=== PATIENT | female | born 1950 | race Caucasian/White ===

== ENCOUNTER 2019-12-19 09:32 | Outpatient (CLI) | payer OTHER ==
[~2019-12-19 09:32] MED LIST: INTEGRA F CAPS1 EACH PO; INTESTINEX1 CA1 PO; PROTONIX40 MG PO; TRAM1TAB98 PO
== END 2019-12-19 09:48 | disposition home or self-care (01) ==
LOC: SONOGRAMA 09:32 → MAMO-SONO 09:45 → SONOGRAMA 09:48
DX: N84.0 Polyp of corpus uteri (principal); N60.11 Diffuse cystic mastopathy of right breast; N60.12 Diffuse cystic mastopathy of left breast; R92.0 Mammographic microcalcification found on diagnostic imaging of breast; E66.3 Overweight; C18.8 Malignant neoplasm of overlapping sites of colon; Z80.0 Family history of malignant neoplasm of digestive organs; D25.1 Intramural leiomyoma of uterus

== ENCOUNTER 2025-02-08 12:30 | Inpatient (IN) | payer OTHER ==
[~2025-02-08] VITALS: Ht 149.9 cm; Wt 56.7 kg
[2025-02-08] MEDS ORDERED: SYNTHROID50 MCG PO (13:27)
[2025-02-08] MEDS ORDERED: METAMUCIL0.4 GM PO (13:28)
[2025-02-08] MEDS ORDERED: TENORMIN25 MG PO (13:28)
[2025-02-15] MEDS ORDERED: BUPIVACAINE HCL/MPF 0.5% 30ML VIAL ONE (14:38)
[2025-02-15] MEDS ORDERED: LIDOCAINE HCL 1%/EPINEPHRINE 20ML VIAL IJ ONE (14:39)
[2025-02-15] MEDS ORDERED: CEFTRIAXONE SODIUM 2,000 MG VIAL ONE (14:43)
[2025-02-15] MEDS ORDERED: METRONIDAZOLE/SODIUM CHLORIDE 500 MG/100 ML PIGGYBACK IV ONE (14:43)
[2025-02-15] MEDS ORDERED: INTEGRA F CAPS1 EAC1 (15:23)
[2025-02-15] MEDS ORDERED: ONDANSETRON HCL 2 MG/ML VIAL IV PRN (15:45)
[2025-02-15] MEDS ORDERED: DEXTROSE 50 % IN WATER 0.5 G/ML DISP.SYRIN IV PRN (15:45)
[2025-02-15] MEDS ORDERED: OxyCODONE HCL 5 MG TABLET (ROXICODONE) PO PRN (15:45)
[2025-02-15] MEDS ORDERED: MORPHINE SULFATE 4 MG/ML CARTRIDGE IV PRN (15:45)
[2025-02-15] MEDS ORDERED: 0.9 % SODIUM CHLORIDE 1,000 ML IV SCH (15:45)
[2025-02-15] MEDS ORDERED: HYOSCYAMINE SULFATE 0.125 MG TAB.SUBL SL SCH (17:00)
[2025-02-15] MEDS ORDERED: GABAPENTIN 300 MG CAPSULE PO SCH (17:00)
[2025-02-15] MEDS ORDERED: POLYETHYLENE GLYCOL 3350 17 GM BLIST.PACK PO SCH (17:00)
[2025-02-15] MEDS ORDERED: MORPHINE SULFATE 4 MG/ML VIAL IV ONE ×2 (18:15→19:15)
[2025-02-15] MEDS ORDERED: ENALAPRILAT DIHYDRATE 1.25 MG/ML VIAL IV PRN (18:45)
[2025-02-15 19:28] LABS: HEMATOCRIT 32.6 % (36.0-45.00); HEMOGLOBIN 10.8 g/dL (12.0-15.00); MEAN CORPUSCULAR HEMOGLOBIN 29.8 pg (27.00-32.0); MEAN CORPUSCULAR HGB CONC 33.1 g/dl (32.0-36.0); PLATELET COUNT 267 K/uL (150-450); RED BLOOD COUNT 3.63 M/uL (4.00-6.00); RED CELL DISTRIBUTION WIDTH 18.5 % (11.5-14.5)
[2025-02-15 19:41] LABS: ALBUMIN 2.6 gm/dL (3.4-5.0); CALCIUM 8.1 mg/dL (8.5-10.1); CREATININE SERUM 0.42 mg/dL (0.55-1.02); GFR 147.49; MAGNESIUM 1.5 mg/dL (1.8-2.4); PHOSPHOROUS 2.1 mg/dL (2.5-4.9); POTASSIUM 3.53 mEq/L (3.5-5.1)
[2025-02-15 19:50] VITALS: BP 131/65; O2SAT 96
[2025-02-15] MEDS ORDERED: ACETAMINOPHEN 500 MG GEL..CAP PO SCH (20:00)
[2025-02-15] MEDS ORDERED: FAMOTIDINE/PF 20 MG/2 ML VIAL IV PUSH SCH (21:00)
[2025-02-15] MEDS ORDERED: ATENOLOL 25 MG TABLET PO SCH (21:00)
[2025-02-15] MEDS ORDERED: CELECOXIB 200 MG CAPSULE PO SCH (21:00)
[2025-02-16] VITALS: BP 137/84; O2SAT 95
[2025-02-16] MEDS ORDERED: PATIENTS OWN MEDICATION (MEDICAMENTO EN PISO) PO SCH (06:00)
[2025-02-16 07:29] LABS: HEMATOCRIT 34.2 % (36.0-45.00); HEMOGLOBIN 11.4 g/dL (12.0-15.00); MEAN CORPUSCULAR HEMOGLOBIN 29.5 pg (27.00-32.0); MEAN CORPUSCULAR HGB CONC 33.2 g/dl (32.0-36.0); PLATELET COUNT 263 K/uL (150-450); RED BLOOD COUNT 3.85 M/uL (4.00-6.00)
[2025-02-16 07:49] LABS: ALBUMIN 2.6 gm/dL (3.4-5.0); CALCIUM 8.2 mg/dL (8.5-10.1); CREATININE SERUM 0.36 mg/dL (0.55-1.02); GFR 176.2; MAGNESIUM 1.6 mg/dL (1.8-2.4); PHOSPHOROUS 2.8 mg/dL (2.5-4.9); POTASSIUM 3.25 mEq/L (3.5-5.1)
[2025-02-16 08:00] VITALS: BP 107/85; O2SAT 96
[2025-02-16] MEDS ORDERED: MAGNESIUM SULFATE IN WATER 50 ML IV NR (10:10)
[2025-02-16] MEDS ORDERED: POTASSIUM CHLORIDE 20MEQ/100ML H2O PB IV NR (10:30)
[2025-02-16] MEDS ORDERED: ENOXAPARIN SODIUM 40 MG/0.4 ML SYRINGE SUBCUTANEO SCH (17:00)
[2025-02-16 17:18] VITALS: BP 111/62; O2SAT 99
[2025-02-17 00:38] VITALS: BP 114/74; O2SAT 98
[2025-02-17 08:00] VITALS: BP 134/64; O2SAT 98
[2025-02-17] MEDS ORDERED: ENOXAPARIN SODIUM 40 MG/0.4 ML SYRINGE SUBCUTANEO SCH (09:00)
[2025-02-17 10:35] LABS: HEMATOCRIT 35.2 % (36.0-45.00); HEMOGLOBIN 11.8 g/dL (12.0-15.00); MEAN CORPUSCULAR HEMOGLOBIN 29.7 pg (27.00-32.0); MEAN CORPUSCULAR HGB CONC 33.4 g/dl (32.0-36.0); PLATELET COUNT 248 K/uL (150-450); RED BLOOD COUNT 3.96 M/uL (4.00-6.00)
[2025-02-17 10:53] LABS: CALCIUM 8.1 mg/dL (8.5-10.1); CREATININE SERUM 0.56 mg/dL (0.55-1.02); GFR 105.82; MAGNESIUM 1.9 mg/dL (1.8-2.4); POTASSIUM 3.85 mEq/L (3.5-5.1)
[2025-02-17 11:03] LABS: PHOSPHOROUS 1.7 mg/dL (2.5-4.9)
[2025-02-17] MEDS ORDERED: POTASSIUM PHOS,M-BASIC-D-BASIC 15 MM in 0.9 % SODIUM CHLORIDE 250 ML IV ONE (14:00)
[2025-02-17 16:07] VITALS: BP 119/76; O2SAT 97
[2025-02-18 00:58] VITALS: BP 123/68; O2SAT 100
[2025-02-18 08:42] VITALS: BP 120/79; O2SAT 96
[2025-02-18] MEDS ORDERED: DEXTROSE 5 %-0.45 % SOD CHLORD 1,000 ML IV SCH (12:30)
[2025-02-18] MEDS ORDERED: PANTOPRAZOLE SODIUM 40 MG/VIAL VIAL IV STA (13:04)
[2025-02-18 16:23] VITALS: BP 115/76; O2SAT 98
[2025-02-18 16:25] LABS: URINE APPEARANCE Turbid; URINE BILIRRUBIN Small (NEGATIVE); URINE BLOOD Large; URINE COLOR Red; URINE GLUCOSE Negative (NEGATIVE); URINE KETONE Negative (NEGATIVE); URINE LEUKOCYTE Moderate; URINE NITRATE Positive; URINE UROBILINOGEN 0.2 E.U./dl
[2025-02-18 16:29] LABS: URINE BACTERIA 638.9 uL (0.0-1933); URINE EPITHELIAL CELLS 13.2 uL (0.0-38.8); URINE WBC 208.2 uL (0.0-23.2)
[2025-02-18 16:41] LABS: URINE PROTEIN 100 (NEGATIVE); URINE RBC > 10558.9 uL (0.0-20.8)
[2025-02-19] VITALS: BP 118/75; O2SAT 96
[2025-02-19 08:00] VITALS: BP 122/80; O2SAT 98
[2025-02-19] MEDS ORDERED: CEFTRIAXONE SODIUM 1,000 MG VIAL IV SCH (09:00)
[2025-02-19 09:39] LABS: HEMATOCRIT 36.2 % (36.0-45.00); HEMOGLOBIN 12.2 g/dL (12.0-15.00); MEAN CELL VOLUME 88.9 fL (80.00-100.00); MEAN CORPUSCULAR HGB CONC 33.7 g/dl (32.0-36.0); PLATELET COUNT 318 K/uL (150-450); RED BLOOD COUNT 4.07 M/uL (4.00-6.00); RED CELL DISTRIBUTION WIDTH 17.4 % (11.5-14.5)
[2025-02-19 11:02] LABS: CALCIUM 8.9 mg/dL (8.5-10.1); CREATININE SERUM 0.46 mg/dL (0.55-1.02); GFR 132.79; MAGNESIUM 1.7 mg/dL (1.8-2.4); PHOSPHOROUS 3.5 mg/dL (2.5-4.9); POTASSIUM 4.44 mEq/L (3.5-5.1)
[2025-02-19] MEDS ORDERED: PANTOPRAZOLE SODIUM 40 MG/VIAL VIAL IV STA (12:02)
[2025-02-19] MEDS ORDERED: MAGNESIUM SULFATE IN WATER 50 ML IV NR (13:30)
[2025-02-19 16:56] VITALS: BP 144/85; O2SAT 100
[2025-02-19] MEDS ORDERED: FAMOTIDINE/PF 20 MG/2 ML VIAL IV PUSH SCH (21:00)
[2025-02-20] VITALS: BP 134/82; O2SAT 97
[2025-02-20] MEDS ORDERED: PANTOPRAZOLE SODIUM 40 MG/VIAL VIAL IV SCH (06:00)
[2025-02-20 07:45] LABS: HEMATOCRIT 34.3 % (36.0-45.00); HEMOGLOBIN 11.3 g/dL (12.0-15.00); MEAN CELL VOLUME 88.8 fL (80.00-100.00); MEAN CORPUSCULAR HEMOGLOBIN 29.2 pg (27.00-32.0); MEAN CORPUSCULAR HGB CONC 32.9 g/dl (32.0-36.0); PLATELET COUNT 317 K/uL (150-450); RED BLOOD COUNT 3.87 M/uL (4.00-6.00); RED CELL DISTRIBUTION WIDTH 17.6 % (11.5-14.5)
[2025-02-20 08:07] VITALS: BP 120/76; O2SAT 94
[2025-02-20 08:28] LABS: ALBUMIN 2.2 gm/dL (3.4-5.0); CALCIUM 8.5 mg/dL (8.5-10.1); CREATININE SERUM 0.37 mg/dL (0.55-1.02); GFR 170.72; MAGNESIUM 1.9 mg/dL (1.8-2.4); PHOSPHOROUS 3.3 mg/dL (2.5-4.9); POTASSIUM 3.88 mEq/L (3.5-5.1)
[2025-02-20] MEDS ORDERED: DIPHENHYDRAMINE HCL 50 MG/ML VIAL 1ML IV NR (08:30)
[2025-02-20] MEDS ORDERED: DIATRIZOATE MEGLUMINE, SODIUM 30 ML BOTTLE PO NR (08:30)
[2025-02-20] MEDS ORDERED: FAMOTIDINE/PF 20 MG/2 ML VIAL IV PUSH SCH (09:00)
[2025-02-20 17:14] VITALS: BP 143/78; O2SAT 96
[2025-02-21 00:10] VITALS: BP 122/74; O2SAT 94
[2025-02-21 08:00] VITALS: BP 118/80; O2SAT 95
[2025-02-21] MEDS ORDERED: SUCRALFATE 1 G TABLET PO SCH (09:00)
[2025-02-21] MEDS ORDERED: LACTOBACILLUS ACIDOPHILUS 1 CAP CAP PO NR (12:00)
[2025-02-21] MEDS ORDERED: CIPROFLOXACIN IN 5 % DEXTROSE 200 ML IV NR (12:00)
[2025-02-21] MEDS ORDERED: LACTOBACILLUS ACIDOPHILUS 1 CAP CAP PO SCH (17:00)
[2025-02-21 17:20] VITALS: BP 121/68; O2SAT 96
[2025-02-21] MEDS ORDERED: CIPROFLOXACIN IN 5 % DEXTROSE 200 ML IV SCH (21:00)
[2025-02-22 00:44] VITALS: BP 139/71; O2SAT 97
[2025-02-22 10:50] VITALS: BP 116/69; O2SAT 95
[2025-02-22] MEDS ORDERED: PEPCID AC20 MG PO (11:33)
[2025-02-22] MEDS ORDERED: INTESTINEX680 M1 PO (11:33)
[2025-02-22] MEDS ORDERED: TRAM1TAB98 PO (11:33)
[2025-02-22] MEDS ORDERED: CIPRO500 MG PO (11:33)
[2025-02-22] MEDS ORDERED: IMODIUM A-D2 MG PO (11:34)
[2025-02-22] MEDS ORDERED: QUESTRAN LIGHT210 GM PO (11:34)
[2025-02-22] MEDS ORDERED: DEXTROSE 50 % IN WATER 0.5 G/ML VIAL IV PRN (14:30)
== END 2025-02-22 14:31 | disposition home or self-care (01) | DRG 331 ==
LOC: SURH 02-15 09:15 → O/R 02-15 09:38 → SURH 02-15 12:30
PROVIDERS: Internal Medicine Geriatric Medicine; ADMIT Surgery; ATTEND Surgery
PROC: 07BB4ZZ Excision of Mesenteric Lymphatic, Percutaneous Endoscopic Approach (ICD-10-PCS; 2025-02-15)
PROC: 0DTL4ZZ Resection of Transverse Colon, Percutaneous Endoscopic Approach (ICD-10-PCS; principal; 2025-02-15 09:15)
PROC: BT4JZZZ Ultrasonography of Kidneys and Bladder (ICD-10-PCS; 2025-02-19)
PROC: BW21ZZZ Computerized Tomography (CT Scan) of Abdomen and Pelvis (ICD-10-PCS; 2025-02-20)
DX: C18.2 Malignant neoplasm of ascending colon (principal); R19.4 Change in bowel habit; R19.5 Other fecal abnormalities; R59.0 Localized enlarged lymph nodes; R31.0 Gross hematuria; E03.8 Other specified hypothyroidism